=== PATIENT | male | born 1980 | race Caucasian/White ===

== ENCOUNTER → 2020-03-19 | Outpatient (CLI) | payer BC, OTHER ==
[~2020-03-19] MED LIST: HYDR-3237 PO; LISI-170 PO; PRED5TAB PO; PREG300C PO
[2020-03-19 15:24] LABS: BASOPHILS # (AUTO) 0.03 x10^3/uL (0-0.1); BASOPHILS % (AUTO) 0 % (0-1); EOSINOPHILS # (AUTO) 0.08 x10^3/uL (0-0.4); EOSINOPHILS % (AUTO) 1 % (1-7); LYMPHOCYTES # (AUTO) 1.62 x10^3/uL (1-3.4); LYMPHOCYTES % (AUTO) 18 % (22-44); MD NO; MEAN CORPUSCULAR HEMOGLOBIN 32.2 pg (27.5-34.5); MEAN CORPUSCULAR HGB CONC 33.8 g/dL (33.2-36.2); MEAN CORPUSCULAR VOLUME 95.2 fL (81-97); MEAN PLATELET VOLUME 6.6 fL (7.4-10.4); MONOCYTES # (AUTO) 0.75 x10^3/uL (0.2-0.8); MONOCYTES % (AUTO) 8 % (2-9); NEUTROPHILS # (AUTO) 6.38 x10^3/uL (1.8-6.8); NEUTROPHILS % (AUTO) 72 % (42-75); PLATELET COUNT 276 x10^3/uL (130-400); RED BLOOD COUNT 5.41 x10^6/uL (4.38-5.82); RED CELL DISTRIBUTION WIDTH 12.5 % (9.4-14.8)
[2020-03-19 15:35] LABS: ANION GAP 7 mmol/L (5-15); CALCIUM 9.1 mg/dL (8.5-10.1); CHLORIDE 106 mmol/L (98-107)
[2020-03-19 15:38] LABS: ALANINE AMINOTRANSFERASE 31 U/L (12-78); ALKALINE PHOSPHATASE 63 U/L (45-117); BILIRUBIN,TOTAL 0.9 mg/dL (0.2-1.0); CREATININE 0.83 mg/dL (0.7-1.3); TOTAL PROTEIN 8.2 g/dL (6.4-8.2)
[2020-03-19 15:48] LABS: INTERNATIONAL NORMALIZED RATIO 0.97 (0.93-1.1); PROTHROMBIN TIME 10.3 Seconds (9.6-11.5)
== END | disposition home or self-care (01) ==
LOC: STAR 14:17
PROVIDERS: ATTEND Neurological Surgery
DX: Z01.818 Encounter for other preprocedural examination (principal); I25.2 Old myocardial infarction; R00.0 Tachycardia, unspecified
CPT/HCPCS: 36415; 71046; 80053; 85025; 85610; 85730; 93005

== ENCOUNTER 2020-03-25 05:41 | Day surgery (SDC) | payer BC ==
[2020-03-19 14:36] VITALS: BP 153/107
[~2020-03-25] VITALS: Ht 185.4 cm; Wt 127.4 kg
[2020-03-25] MEDS ORDERED: BUPIVACAINE/PF-EPI 0.5% 1:200K ONE (06:15)
[2020-03-25] MEDS ORDERED: BACITRACIN 50,000 UNIT ONE (06:16)
[2020-03-25] MEDS ORDERED: THROMBIN 20,000 UNIT VIAL TP ONE (06:16)
[2020-03-25] MEDS ORDERED: LACTATED RINGERS 1,000 ML IV SCH (06:34)
[2020-03-25] MEDS ORDERED: FENTANYL PF 250 MCG/5ML ONE ×3 (06:39→08:26)
[2020-03-25] MEDS ORDERED: MIDAZOLAM 1 MG/ML, 2ML ONE (06:39)
[2020-03-25] MEDS ORDERED: PHENYLEPHRINE 10 MG/ML ONE (06:45)
[2020-03-25] MEDS ORDERED: PROPOFOL 100 ML ONE (06:47)
[2020-03-25] MEDS ORDERED: PROPOFOL 10 MG/ML, 20ML ONE (06:48)
[2020-03-25] MEDS ORDERED: NEOSTIGMINE 1 MG/ML, 10ML ONE (06:48)
[2020-03-25] MEDS ORDERED: DEXAMETHASONE 4 MG/ML, 1ML ONE (06:48)
[2020-03-25] MEDS ORDERED: ROCURONIUM 10MG/ML,5ML ONE (06:48)
[2020-03-25] MEDS ORDERED: CEFAZOLIN 1,000 MG ONE (06:48)
[2020-03-25] MEDS ORDERED: GLYCOPYRROLATE 0.2MG/1ML, 5ML ONE (06:48)
[2020-03-25] MEDS ORDERED: CHLORHEXIDINE 15 ML UDC MM ONE (07:00)
[2020-03-25] MEDS ORDERED: GABAPENTIN 300 MG CAPSULE PO ONE (07:00)
[2020-03-25] MEDS ORDERED: ACETAMINOPHEN 500 MG TABLET PO ONE (07:00)
[2020-03-25] MEDS ORDERED: HYDROCORTISONE 100 MG INJ. ONE (07:06)
[2020-03-25] MEDS ORDERED: HYDROmorphone 1 MG/ML, 1ML INJ IVPush PRN (07:30)
[2020-03-25] MEDS ORDERED: ONDANSETRON 2MG/ML, 2ML IVPush PRN (07:30)
[2020-03-25] MEDS ORDERED: LABETALOL 5MG/ML, 20ML IV PRN (07:30)
[2020-03-25] MEDS ORDERED: morphine SULFATE 10 MG/ML, 1ML IVPush PRN (07:30)
[2020-03-25] MEDS ORDERED: hydrALAzine 20 MG/ML, 1ML IV PRN (07:30)
[2020-03-25] MEDS ORDERED: MEPERIDINE/PF 25MG/0.5ML IVPush PRN (07:30)
[2020-03-25] MEDS ORDERED: FENTANYL PF 100 MCG/2ML IV PRN (07:30)
[2020-03-25] MEDS ORDERED: CLINDAMYCIN PMX 900MG/50ML 50 ML IV ONE ×2 (08:00→10:00)
[2020-03-25] MEDS ORDERED: SUGAMMADEX 200 MG/2 ML IVPush ONE (08:06)
[2020-03-25] MEDS ORDERED: OXYcodone 5 MG/5 ML ORAL.SOL UDC ONE (09:35)
[2020-03-25] MEDS: OXYcodone 5 MG/5 ML ORAL.SOL UDC PO PRN ×2 (09:43→13:14)
[2020-03-25] MEDS ORDERED: FENTANYL PF 100 MCG/2ML ONE (09:48)
[2020-03-25] MEDS ORDERED: METHOCARBAMOL 1,000 MG in DEXTROSE 5% 100 ML IV ONE (10:00)
== END 2020-03-25 13:55 | disposition home or self-care (01) ==
LOC: OUT 05:41
PROVIDERS: ATTEND Neurological Surgery
DX: M48.02 Spinal stenosis, cervical region (principal); M50.022 Cervical disc disorder at C5-C6 level with myelopathy; M50.122 Cervical disc disorder at C5-C6 level with radiculopathy; M50.222 Other cervical disc displacement at C5-C6 level; E66.01 Morbid (severe) obesity due to excess calories; Z68.37 Body mass index [BMI] 37.0-37.9, adult; Z79.891 Long term (current) use of opiate analgesic; Z79.899 Other long term (current) drug therapy; Z88.0 Allergy status to penicillin; Z88.8 Allergy status to other drugs, medicaments and biological substances; Z91.011 Allergy to milk products; Z91.018 Allergy to other foods; Z90.49 Acquired absence of other specified parts of digestive tract; Z82.49 Family history of ischemic heart disease and other diseases of the circulatory system
CPT/HCPCS: 22856; 72040; 95938; 95941; C1776; J0690; J1100; J1720; J2250; J2370; J2704; J2710; J2800; J3010; J7120

== ENCOUNTER 2020-12-22 16:44 | Inpatient (IN) | payer BC ==
[~2020-12-22] VITALS: Ht 185.4 cm; Wt 120.2 kg
--- NOTE | 2020-12-22 17:16 | NUR ---
PT BROUGHT BACK FROM TRIAGE. PT C/O LEFT UPPER DULL CHEST PAIN FOR ONE HOUR. FEELS LIKE A TIGHT MUSCLE PULLING ON LEFT CHEST/ARM. PT STATES PAIN/TIGHTNESS IS WORSE WITH DEEP INSPIRATION. PT DENIES ANY SOB, FEVER, CHILLS OR RECENT INJURY TO ARM.
[2020-12-22 18:19] LABS: BASOPHILS % (AUTO) 1 % (0-1); EOSINOPHILS % (AUTO) 1 % (1-7); LYMPHOCYTES % (AUTO) 25 % (22-44); MEAN CORPUSCULAR HEMOGLOBIN 31.3 pg (27.5-34.5); MEAN CORPUSCULAR HGB CONC 34.8 g/dL (33.2-36.2); MEAN PLATELET VOLUME 6.8 fL (7.4-10.4); MONOCYTES % (AUTO) 7 % (2-9); NEUTROPHILS % (AUTO) 66 % (42-75); PLATELET COUNT 274 x10^3/uL (130-400); RED BLOOD COUNT 5.15 x10^6/uL (4.38-5.82); RED CELL DISTRIBUTION WIDTH 12.7 % (9.4-14.8)
--- NOTE | 2020-12-22 18:22 | NUR ---
PT RESTING COMFORTABLY
[2020-12-22 18:24] LABS: ALBUMIN 3.9 g/dL (3.4-5.0); ANION GAP 5 mmol/L (5-15); CALCIUM 8.5 mg/dL (8.5-10.1); CHLORIDE 110 mmol/L (98-107)
[2020-12-22 18:27] LABS: MD NO
[2020-12-22 18:31] LABS: CREATININE 0.74 mg/dL (0.7-1.3); TROPONIN I 0.093 ng/mL (0.000-0.045)
--- NOTE | 2020-12-22 18:39 | NUR ---
PT COMPLAINNG OF INCREASING LEFT CHECT PAIN. DR MCKEON NOTIFIED. FOLLOW UP EKG AND PAIN MEDICATION ORDERED.
--- NOTE | 2020-12-22 18:49 | NUR ---
REPORT GIVEN TO TEAGAN GHOSH
[2020-12-22] MEDS ORDERED: NITROGLYCERIN OINT 2%, 1GM TP ONE ×2 (18:52→19:00)
[2020-12-22] MEDS ORDERED: MORPHINE SULFATE 4 MG/ML, 1ML IVPush PRN (19:00)
[2020-12-22] MEDS ORDERED: ONDANSETRON 2MG/ML, 2ML IVPush ONE (19:00)
[2020-12-22] MEDS ORDERED: ONDANSETRON 2MG/ML, 2ML IV PRN (19:30)
[2020-12-22] MEDS ORDERED: NITROGLYCERIN 0.4 MG BOTTLE (25 TABS) SL PRN (19:30)
[2020-12-22] MEDS ORDERED: SODIUM CHLORIDE FLUSH 10ML SYR IVF PRN (19:30)
[2020-12-22 19:39] LABS: CHOLESTEROL, TOTAL 232 mg/dL (140-239); TRIGLYCERIDES 224 mg/dL (50-200); VLDL CHOLESTEROL 45 mg/dL (0-25)
[2020-12-22 19:42] LABS: CHOL/HDL RATIO 7.5; HDL CHOL % 13 % (26-37); HDL CHOLESTEROL (DIRECT) 31 mg/dL (40-60); LDL CHOLESTEROL,CALCULATED 156 mg/dL (54-169)
[2020-12-22 19:48] LABS: TROPONIN I 0.207 ng/mL (0.000-0.045)
--- NOTE | 2020-12-22 20:11 | NUR ---
REPORT TO ANDRE CANDELARIA FOR FLOOR BED [phone]
[2020-12-22 20:35] VITALS: BP 145/92
[2020-12-22] MEDS: ENOXAPARIN 120MG/0.8ML SQ SCH (20:46)
[2020-12-22] MEDS: ATORVASTATIN 80 MG TABLET PO SCH (20:46)
[2020-12-22] MEDS: SODIUM CHLORIDE FLUSH 10ML SYR IVF SCH (20:47)
[2020-12-22 23:12] LABS: TROPONIN I 0.421 ng/mL (0.000-0.045)
[2020-12-23 02:37] VITALS: BP 135/79
[2020-12-23] MEDS: ASPIRIN 325 MG TABLET EC PO SCH (05:23)
[2020-12-23] MEDS: METOPROLOL TARTRATE 25 MG TAB PO SCH ×2 (05:23→17:25)
[2020-12-23 05:48] LABS: MEAN CORPUSCULAR HEMOGLOBIN 31.8 pg (27.5-34.5); MEAN CORPUSCULAR HGB CONC 35.2 g/dL (33.2-36.2); PLATELET COUNT 261 x10^3/uL (130-400); RED BLOOD COUNT 4.86 x10^6/uL (4.38-5.82); RED CELL DISTRIBUTION WIDTH 12.8 % (9.4-14.8)
[2020-12-23 05:56] LABS: ALBUMIN 3.4 g/dL (3.4-5.0); ANION GAP 4 mmol/L (5-15); CALCIUM 8.3 mg/dL (8.5-10.1); CHLORIDE 108 mmol/L (98-107)
[2020-12-23 06:00] LABS: ALANINE AMINOTRANSFERASE 31 U/L (12-78); ALKALINE PHOSPHATASE 59 U/L (45-117); BILIRUBIN,TOTAL 0.4 mg/dL (0.2-1.0); TOTAL PROTEIN 6.8 g/dL (6.4-8.2)
[2020-12-23 06:40] LABS: MD YES
[2020-12-23 06:41] LABS: BAND#(MANUAL) 0.07 x10^3/uL; BANDS%(MANUAL) 1 % (0-7); BASOS#(MANUAL) 0.22 x10^3/uL (0-0.1); BASOS% (MANUAL) 3 % (0-1); EOS#(MANUAL) 0.14 x10^3/uL (0.0-0.4); EOS% (MANUAL) 2 % (1-7); LYMPH#(MANUAL) 3.31 x10^3/uL (1-3.4); LYMPHS% (MANUAL) 46 % (22-44); MONOS#(MANUAL) 0.36 x10^3/uL (0.3-2.7); MONOS% (MANUAL) 5 % (2-9); REACTIVE LYMPHS # (MANUAL) 0.07 x10^3/uL (0-0); REACTIVE LYMPHS % (MANUAL) 1 % (0-0); SEG#(MANUAL) 3.02 x10^3/uL (1.8-6.8); SEGS% (MANUAL) 42 % (42-75)
[2020-12-23 06:42] LABS: <PLATELET ESTIMATE> ADEQUATE; <PLT MORPHOLOGY> NORMAL PLT MORPH; <RBC MORPHOLOGY> NORMAL
[2020-12-23] MEDS ORDERED: morphine SULFATE 10 MG/ML, 1ML ONE (07:24)
[2020-12-23] MEDS ORDERED: PREG100C PO (07:38)
[2020-12-23] MEDS ORDERED: BUPR600F2 PO (07:38)
[2020-12-23] MEDS ORDERED: CYCL10TA2 PO (07:38)
[2020-12-23] MEDS: morphine SULFATE 10 MG/ML, 1ML IVPush PRN ×2 (07:52→14:22)
[2020-12-23] MEDS: ACETAMINOPHEN 325 MG TABLET PO PRN ×2 (07:57→14:22)
[2020-12-23 08:35] VITALS: BP 113/76
[2020-12-23] MEDS: BUPRENORPHINE HCL 600 MCG HOMEMEDPO SCH ×2 (09:00→17:00)
[2020-12-23] MEDS: ENOXAPARIN 120MG/0.8ML SQ SCH (09:00)
[2020-12-23] MEDS: CYCLOBENZAPRINE 10 MG TABLET PO PRN ×2 (09:15→20:58)
[2020-12-23] MEDS: OXYcodone/APAP 5/325MG TABLET PO PRN ×2 (09:15→14:23)
[2020-12-23] MEDS: SODIUM CHLORIDE FLUSH 10ML SYR IVF SCH ×2 (09:16→21:00)
[2020-12-23] MEDS: LISINOPRIL 20 MG TABLET PO SCH (09:16)
[2020-12-23] MEDS: PREGABALIN 100 MG CAPSULE PO SCH ×2 (09:16→20:58)
[2020-12-23 10:36] LABS: TROPONIN I 0.263 ng/mL (0.000-0.045)
[2020-12-23] MEDS ORDERED: MIDAZOLAM 1 MG/ML, 5ML ONE (12:11)
[2020-12-23] MEDS ORDERED: FENTANYL PF 100 MCG/2ML ONE (12:12)
[2020-12-23] MEDS ORDERED: LIDOCAINE 2%, 20ML ONE (12:12)
[2020-12-23] MEDS ORDERED: BIVALIRUDIN 250 MG ONE (12:58)
[2020-12-23] MEDS ORDERED: METOPROLOL 1 MG/ML, 5ML ONE (13:06)
[2020-12-23] MEDS ORDERED: DIPHENHYDRAMINE 50 MG/ML, 1ML ONE (13:16)
[2020-12-23] MEDS ORDERED: ACETAMINOPHEN 325 MG TABLET ONE (13:28)
[2020-12-23] MEDS: SODIUM CHLORIDE 0.9% 1,000 ML IV SCH ×2 (13:30→21:00)
[2020-12-23] MEDS ORDERED: BIVALIRUDIN 250 MG in SODIUM CHLORIDE 0.9% 50 ML IV SCH (13:30)
[2020-12-23 14:00] VITALS: BP 156/98
[2020-12-23 20:15] VITALS: BP 109/55
[2020-12-23] MEDS: ATORVASTATIN 80 MG TABLET PO SCH (20:58)
[2020-12-23] MEDS: TICAGRELOR 90 MG TABLET PO SCH (20:59)
[2020-12-24 02:10] VITALS: BP 134/87
[2020-12-24 04:55] LABS: BASOPHILS % (AUTO) 1 % (0-1); EOSINOPHILS % (AUTO) 2 % (1-7); LYMPHOCYTES % (AUTO) 41 % (22-44); MEAN CORPUSCULAR HEMOGLOBIN 31.6 pg (27.5-34.5); MEAN CORPUSCULAR HGB CONC 35.4 g/dL (33.2-36.2); MEAN PLATELET VOLUME 6.9 fL (7.4-10.4); MONOCYTES % (AUTO) 10 % (2-9); NEUTROPHILS % (AUTO) 46 % (42-75); PLATELET COUNT 240 x10^3/uL (130-400); RED BLOOD COUNT 4.97 x10^6/uL (4.38-5.82); RED CELL DISTRIBUTION WIDTH 12.7 % (9.4-14.8)
[2020-12-24 04:58] LABS: MD NO
[2020-12-24] MEDS: SODIUM CHLORIDE 0.9% 1,000 ML IV SCH (05:02)
[2020-12-24 05:07] LABS: ANION GAP 6 mmol/L (5-15); CALCIUM 8.4 mg/dL (8.5-10.1); CHLORIDE 111 mmol/L (98-107); CREATININE 0.86 mg/dL (0.7-1.3)
[2020-12-24] MEDS: CYCLOBENZAPRINE 10 MG TABLET PO PRN (05:41)
[2020-12-24] MEDS: METOPROLOL TARTRATE 25 MG TAB PO SCH (05:41)
[2020-12-24] MEDS: ASPIRIN 325 MG TABLET EC PO SCH (05:42)
[2020-12-24] MEDS: OXYcodone/APAP 5/325MG TABLET PO PRN (05:42)
[2020-12-24 08:30] VITALS: BP 128/90
[2020-12-24] MEDS ORDERED: ASPIRIN 81 MG TABLET EC PO SCH (09:00)
[2020-12-24] MEDS: BUPRENORPHINE HCL 600 MCG HOMEMEDPO SCH (09:00)
[2020-12-24] MEDS: SODIUM CHLORIDE FLUSH 10ML SYR IVF SCH (09:00)
[2020-12-24] MEDS ORDERED: TICA90TA PO (09:33)
[2020-12-24] MEDS ORDERED: ATOR-2 PO (09:33)
[2020-12-24] MEDS ORDERED: METO25TA35 PO (09:33)
[2020-12-24] MEDS ORDERED: NITR0.4T28 SL (09:33)
[2020-12-24] MEDS: PREGABALIN 100 MG CAPSULE PO SCH (09:37)
[2020-12-24] MEDS: TICAGRELOR 90 MG TABLET PO SCH (09:38)
[2020-12-24] MEDS: LISINOPRIL 20 MG TABLET PO SCH (09:38)
[2020-12-25] MEDS ORDERED: ASPIRIN 81 MG TABLET EC PO SCH (09:00)
== END 2020-12-24 11:58 | disposition home or self-care (01) | DRG 247 ==
LOC: ED 19:28 → INTOOBSV 19:49 → EDIP 19:49 → OBSVTOIN 19:49 → 5SO 20:28 → DCLOUNGE 12-24 11:45
PROVIDERS: ADMIT Internal Medicine; ATTEND Internal Medicine
PROC: 027034Z Dilation of Coronary Artery, One Artery with Drug-eluting Intraluminal Device, Percutaneous Approach (ICD-10-PCS; principal; 2020-12-23)
PROC: 4A023N7 Measurement of Cardiac Sampling and Pressure, Left Heart, Percutaneous Approach (ICD-10-PCS; 2020-12-23)
PROC: B2111ZZ Fluoroscopy of Multiple Coronary Arteries using Low Osmolar Contrast (ICD-10-PCS; 2020-12-23)
PROC: B2151ZZ Fluoroscopy of Left Heart using Low Osmolar Contrast (ICD-10-PCS; 2020-12-23)
DX: I21.4 Non-ST elevation (NSTEMI) myocardial infarction (principal); Z79.899 Other long term (current) drug therapy; Z79.82 Long term (current) use of aspirin; M51.36 Other intervertebral disc degeneration, lumbar region; M50.30 Other cervical disc degeneration, unspecified cervical region; Z88.8 Allergy status to other drugs, medicaments and biological substances; Z88.0 Allergy status to penicillin; Z91.018 Allergy to other foods; I25.110 Atherosclerotic heart disease of native coronary artery with unstable angina pectoris; I10 Essential (primary) hypertension; G89.4 Chronic pain syndrome; F17.200 Nicotine dependence, unspecified, uncomplicated; E78.5 Hyperlipidemia, unspecified; E78.1 Pure hyperglyceridemia; Z91.013 Allergy to seafood
CPT/HCPCS: 36415; 93458; 99285; C9600; J3490; 71045; 80048; 80053; 80061; 82040; 83735; 84100; 84484; 85025; 93005; 93306; 99156; 99157; C1769; C1894; G0378; J0583; J1650; J2250; J3010; C1725; C1874; C1887; J1200; J2270; Q9967